=== PATIENT | male | born 1955 | race Caucasian/White ===

== ENCOUNTER 2020-10-29 10:31 | Inpatient (IN) ==
[2020-10-29] MEDS ORDERED: *HR* OxyCODONE Immed Rel 5 MG TABLET PO PRN (11:24)
[2020-10-29] MEDS ORDERED: Ondansetron 4 MG/2 ML VIAL IVP PRN ×2 (11:24→20:35)
[2020-10-29] MEDS ORDERED: *HR* HYDROmorphone PF 0.5 MG/0.5 ML SYRINGE IVP PRN (11:24)
[2020-10-29] MEDS ORDERED: Ringers Solution, Lactated 1,000 ML IVC SCH (11:30)
[2020-10-29] MEDS ORDERED: *HR* FentaNYL (PF) 100 MCG/2 ML VIAL ONE ×4 (11:39→18:27)
[2020-10-29] MEDS ORDERED: *HR* Succinylcholine 200 MG/10 ML VIAL IVP ONE (11:39)
[2020-10-29] MEDS ORDERED: Lidocaine HCL 4 ML Topical Solution (Laryng-O-Jet Kit Sterile Pak) TP ONE (11:39)
[2020-10-29] MEDS ORDERED: *HR* Propofol 200 MG/20 ML VIAL IVP ONE ×2 (11:39→18:26)
[2020-10-29] MEDS ORDERED: *HR* Rocuronium Bromide 50 MG/5 ML VIAL ONE ×3 (11:43→17:17)
[2020-10-29] MEDS ORDERED: Lidocaine -MPF 2% 2 ML VIAL ONE (11:43)
[2020-10-29] MEDS ORDERED: *HR* Midazolam HCl 2 MG/2 ML VIAL ONE (11:54)
[2020-10-29] MEDS ORDERED: *HR* Phenylephrine 10 MG/ML VIAL ONE ×2 (12:12→17:24)
[2020-10-29] MEDS ORDERED: CeFAZolin Syr 2,000MG/20 ML 2,000 MG/20 ML SYRINGE IVPB ONE (12:19)
[2020-10-29] MEDS ORDERED: Heparin 1,000 UNITS/500 mL 500 ML ONE (13:46)
[2020-10-29] MEDS ORDERED: Protamine Sulfate 50 MG/5 ML VIAL IVP ONE (13:46)
[2020-10-29] MEDS ORDERED: ceFAZolin 1,000 MG, Sodium Chloride IRRigation 1,000 ML IR ONE (14:00)
[2020-10-29] MEDS ORDERED: Ondansetron 4 MG/2 ML VIAL ONE (15:43)
[2020-10-29] MEDS ORDERED: *HR* Heparin 5,000 UNIT/ML VIAL ONE (16:52)
[2020-10-29] MEDS ORDERED: *HR* Norepinephrine 4 MG/4 ML VIAL IVC ONE (17:06)
[2020-10-29] MEDS ORDERED: Albumin Human 5% 37.5 GM/750 ML IV.SOLN ONE (17:07)
[2020-10-29 17:14] LABS: ABG Base Excess -2 mEq/L (-2 to 3); ABG Chloride 102 mEq/L (98-107); ABG Glucose 110 mg/dL (60-95); ABG HCO3 24 mEq/L (21-27); ABG Ionized Calcium 1.16 mmol/L (1.15-1.35); ABG Oxygen Saturation 99 % (95-98); ABG PCO2 47 mmHg (35-45); ABG PH 7.33 pH Units (7.32-7.45); ABG PO2 133 mmHg (85-104); ABG TCO2 26 mEq/L (20-26)
[2020-10-29] MEDS ORDERED: *HR* Labetalol 20 MG/4 ML SYRINGE IVP ONE (18:25)
[2020-10-29] MEDS ORDERED: EPHEDrine 50 MG/ML VIAL ONE (18:43)
[2020-10-29] MEDS ORDERED: Ipratropium/Albuterol Neb 3 ML ONE (19:06)
[2020-10-29] MEDS ORDERED: Naloxone 0.4 MG/ML INJ IVP PRN (20:35)
[2020-10-29] MEDS ORDERED: Fluticasone Propionate Nasal 50 MCG/SPRAY BOTTLE NS PRN (20:35)
[2020-10-29] MEDS ORDERED: *HR* Labetalol 20 MG/4 ML SYRINGE IVP PRN (20:35)
[2020-10-29] MEDS ORDERED: *HR* HYDROcodone/Acet 10/325 mg TABLET PO PRN (20:35)
[2020-10-29] MEDS ORDERED: hydrOXYzine pamoate 25 MG CAPSULE PO PRN (21:00)
[2020-10-29] MEDS: CarBAMazepine 100 MG TABLET PO SCH (22:08)
[2020-10-29] MEDS: *HR* OxyCODONE Immed Rel 5 MG TABLET PO PRN (22:08)
[2020-10-29] MEDS: Ringers Solution, Lactated 1,000 ML IVC SCH (22:10)
[2020-10-29] MEDS: Budesonide/Formoterol 80/4.5 1 PUFF INH IH SCH (23:36)
[2020-10-30] MEDS: CeFAZolin 2 GM/120 ML BAG IVPB SCH ×3 (00:45→16:34)
[2020-10-30] MEDS: Ringers Solution, Lactated 1,000 ML IVC SCH (06:52)
[2020-10-30 07:20] LABS: Basophils % 0.1 %; Eosinophils % 0.1 %; Hematocrit 34.1 % (37.5-50.1); Hemoglobin 11.6 g/dL (12.9-16.9); Immature Granulocytes % 0.6 % (0-4); Lymphocytes # 2.1 K/mcL (0.6-4.6); Lymphocytes % 17.5 %; Mean Corpuscular Hemoglobin 32.1 pg (28.0-33.3); Mean Corpuscular Volume 94.5 fL (83.0-100.0); Mean Platelet Volume 9.2 fL (9.4-12.4); Monocytes # 1.2 K/mcL (0.0-1.3); Monocytes % 10.3 %; Neutrophils # 8.5 K/mcL (1.6-8.9); Platelet Count 185 K/mcL (140-400); Red Blood Count 3.61 M/mcL (4.19-5.50); Red Cell Distribution Width 13.2 % (11.5-14.5); Segmented Neutrophils % 71.4 %; White Blood Count 11.9 K/mcL (4.3-11.1)
[2020-10-30 07:29] LABS: BUN/Creatinine Ratio 14 (6-26); Blood Urea Nitrogen 10 mg/dL (8-23); Carbon Dioxide 26 mEq/L (23-29); Chloride 104 mEq/L (98-107); Glucose 123 mg/dL (70-105); Osmolality,Calculated 282 (280-300); Sodium 136 mEq/L (136-145); eGFR For African Americans > 60 (> 60); eGFR For Non-African Americans > 60 (> 60)
[2020-10-30] MEDS ORDERED: Cholecalciferol (D-3) 1,000 UNIT (25MCG) TABLET PO SCH (09:00)
[2020-10-30] MEDS ORDERED: Famotidine 20 MG TABLET PO SCH (09:00)
[2020-10-30] MEDS ORDERED: Aspirin Enteric Coated 81 MG Tablet PO SCH (09:00)
[2020-10-30] MEDS: CarBAMazepine 100 MG TABLET PO SCH ×2 (09:56→16:34)
[2020-10-30] MEDS: Budesonide/Formoterol 80/4.5 1 PUFF INH IH SCH (10:43)
[2020-10-30] MEDS: *HR* OxyCODONE Immed Rel 5 MG TABLET PO PRN (10:45)
[2020-10-30 15:43] VITALS: O2SAT 93
[2020-10-30 16:19] VITALS: BP 104/66; PULSE 98; TEMP 98.8
== END 2020-10-30 18:05 | disposition home or self-care (01) | DRG 181 ==
LOC: SAMDAY 10:31 → 2NNU 20:27
PROVIDERS: ADMIT Surgery Vascular Surgery; ATTEND Surgery Vascular Surgery